=== PATIENT | female | born 1975 | race Caucasian/White ===

== ENCOUNTER 2018-07-29 21:39 | Emergency (ER) | payer OTHER ==
[~2018-07-29] VITALS: Ht 170.2 cm; Wt 96.6 kg
[2018-07-29 21:58] VITALS: Ht 170.2 cm; Wt 96.6 kg
[2018-07-29 22:55] LABS: UA SPECIFIC GRAVITY 1.015 (1.005-1.035); microscopic required? YES; urine erythrocyte 3+ (NEGATIVE)
[2018-07-29 22:56] LABS: BASOPHIL % 0.7 % (0-2); PLATELET COUNT 256 x10^3mcL (130-400); RED CELL DISTRIBUTION WIDTH 12.6 % (11.5-14.5)
[2018-07-29 23:08] LABS: CALCIUM 8.4 mg/dL (8.5-10.1); CARBON DIOXIDE 24.5 mmol/L (21-32); CHLORIDE SERUM 105 mmol/L (98-107); CREATININE SERUM 0.8 mg/dL (0.6-1.0); GFR1 > 60 mL/min; GLUCOSE SERUM 103 mg/dL (74-106); POTASSIUM SERUM 3.8 mmol/L (3.5-5.1); SODIUM SERUM 140 mmol/L (136-145)
[2018-07-29 23:13] LABS: ALBUMIN 3.6 g/dL (3.4-5.0); ALKALINE PHOSPHATASE 69 U/L (46-116); ALT/SGPT 17 U/L (14-59); AMYLASE 29 U/L (25-115); AST/SGOT 12 U/L (15-37); BILIRUBIN TOTAL 0.4 mg/dL (0.20-1.00); LIPASE 114 IU/L (73-393); TOTAL PROTEIN, SERUM 7.4 g/dL (6.4-8.2)
[2018-07-30 00:51] VITALS: BP 148/76
== END 2018-07-30 00:51 | disposition home or self-care (01) ==
LOC: ED 21:39
PROVIDERS: Specialist
DX: N13.2 Hydronephrosis with renal and ureteral calculous obstruction (principal); J45.909 Unspecified asthma, uncomplicated; I10 Essential (primary) hypertension; Z98.84 Bariatric surgery status
CPT/HCPCS: J1885; J2405; J3010